=== PATIENT | male | born 1935 | race Caucasian/White ===

== ENCOUNTER 2017-12-09 16:08 | Emergency (ER) | payer SELFPAY ==
[~2017-12-09] VITALS: Ht 167.6 cm; Wt 75.0 kg
[2017-12-09 16:49] LABS: INTER. NORMALIZED RATIO 1.1
[2017-12-09 16:50] LABS: BASOPHIL (%) 0.4 % (0-1); EOSINOPHIL (%) 4.7 % (0-5); EOSINOPHIL COUNT 0.3 K/uL (0-0.3); HEMATOCRIT 23.3 % (38.0-50.0); HEMOGLOBIN 7.4 G/DL (12.5-16.6); IMMATURE GRANULOCYTE (%) 0.4 % (0.0-0.7); LYMPHOCYTE (%) 23.6 % (15-42); LYMPHOCYTE COUNT 1.3 K/uL (1.0-2.8); MCH 27.9 PG (29.0-34.0); MCHC 31.8 G/DL (30.0-36.0); MCV 87.9 FL (86-99); MONOCYTE COUNT 0.7 K/uL (0-0.8); NEUTROPHIL (%) 57.9 % (45-76); NEUTROPHIL COUNT 3.2 K/uL (1.8-6.4); PLATELET COUNT 171 K/uL (156-360); RBC DIS.WIDTH-CV 16.1 % (11.8-14.6); RBC DIS.WIDTH-SD 49.6 % (39-53); RED BLOOD COUNT 2.65 M/uL (4.00-5.50); WHITE BLOOD COUNT 5.6 K/uL (4.1-10.2)
[2017-12-09 16:52] LABS: PTT 23.3 SEC (25-37)
[2017-12-09 16:56] LABS: ALBUMIN 3.1 g/dL (3.2-4.8); CHLORIDE 106 mEq/L (99-109); POTASSIUM 4.5 mEq/L (3.7-5.4); SODIUM 141 mEq/L (136-147)
[2017-12-09 16:57] LABS: MAGNESIUM 2.1 mg/dL (1.3-2.7)
[2017-12-09 16:59] LABS: GLUCOSE 95 mg/dL (70-99); TOTAL PROTEIN 5.7 g/dL (6.4-8.3)
[2017-12-09 17:01] LABS: TOTAL BILIRUBIN 1.8 mg/dL (0.0-1.0)
[2017-12-09 17:02] LABS: ALKALINE PHOSPHATASE 82 IU/L (3-129)
[2017-12-09 17:03] LABS: GFR ESTIMATE (CALCULATED) > 59 mL/min/ (58.99-99999)
[2017-12-09 17:04] LABS: AST (GOT) 27 IU/L (2-34); UREA NITROGEN (BUN) 20 mg/dL (9-23)
[2017-12-09 17:05] LABS: ALT (GPT) 22 IU/L (3-49)
[2017-12-09 17:06] LABS: CREATINE KINASE 484 IU/L (1-294); LIPASE 22 U/L (1.0-51.0); TOTAL CK 484 IU/L (1-294)
[2017-12-09 17:13] LABS: TROP-I INTERPRETATION NEGATIVE; TROPONIN-I < 0.01 ng/mL (0.0-0.30)
[2017-12-09 17:14] LABS: CK-MB 0.8 ng/mL (0.0-4.9); CKMB RELATIVE INDEX 0.2 (0.0-3.9)
[2017-12-09 20:55] LABS: HEMATOCRIT 22.8 % (38.0-50.0); HEMOGLOBIN 7.2 G/DL (12.5-16.6); MCV 87.7 FL (86-99)
[2017-12-09] MEDS ORDERED: FLUOXETINE HCL20 MG PO (21:20)
[2017-12-09] MEDS ORDERED: ZOCOR20 MG PO (21:21)
[2017-12-09] MEDS ORDERED: CARVEDILOL6.25 MG PO (21:22)
[2017-12-09] MEDS ORDERED: MOTRIN600 MG PO (21:25)
[2017-12-09] MEDS ORDERED: COLACE100 MG PO (21:25)
[2017-12-09] MEDS ORDERED: LORTAB 5-325 M1 EACH PO (21:25)
[2017-12-09 22:02] VITALS: BP 109/51
== END 2017-12-09 22:04 | disposition home or self-care (01) ==
LOC: TRA 16:08 → EME 16:08 → TRA 22:04
PROVIDERS: Emergency Medicine
DX: S32.392A Other fracture of left ilium, initial encounter for closed fracture (principal); W23.0XXA Caught, crushed, jammed, or pinched between moving objects, initial encounter; W31.82XA Contact with other commercial machinery, initial encounter; I25.10 Atherosclerotic heart disease of native coronary artery without angina pectoris; I44.0 Atrioventricular block, first degree; I44.4 Left anterior fascicular block; R00.1 Bradycardia, unspecified; R94.31 Abnormal electrocardiogram [ECG] [EKG]; I10 Essential (primary) hypertension; Z87.891 Personal history of nicotine dependence
CPT/HCPCS: 71045; 71250; 72170; 74177; 80053; 81003; 82550; 82553; 83690; 83735; 84484; 85014; 85018; 85025; 85610; 85730; 93005; 99281; 99285; J3010; J7040

== ENCOUNTER 2017-12-10 15:04 | Emergency (ER) | payer SELFPAY ==
[~2017-12-10] VITALS: Ht 167.6 cm; Wt 75.0 kg
[~2017-12-10 15:04] MED LIST: CARVEDILOL6.25 MG PO; COLACE100 MG PO; FLUOXETINE HCL20 MG PO; LORTAB 5-325 M1 EACH PO; MOTRIN600 MG PO; ZOCOR20 MG PO
[2017-12-10 15:52] LABS: HEMATOCRIT 25.5 % (38.0-50.0); HEMOGLOBIN 8.1 G/DL (12.5-16.6); MCH 27.8 PG (29.0-34.0); MCHC 31.8 G/DL (30.0-36.0); MCV 87.6 FL (86-99); PLATELET COUNT 203 K/uL (156-360); RBC DIS.WIDTH-CV 16.6 % (11.8-14.6); RBC DIS.WIDTH-SD 50.4 % (39-53); RED BLOOD COUNT 2.91 M/uL (4.00-5.50); WHITE BLOOD COUNT 6.3 K/uL (4.1-10.2)
[2017-12-10 16:11] VITALS: BP 99/54
== END 2017-12-10 16:12 | disposition home or self-care (01) ==
LOC: EME 15:04
PROVIDERS: Nurse Practitioner Family
DX: Z01.89 Encounter for other specified special examinations (principal); I95.9 Hypotension, unspecified; E78.5 Hyperlipidemia, unspecified
CPT/HCPCS: 85027; 99281; 99282